=== PATIENT | male | born 1930 | race Caucasian/White ===

== ENCOUNTER → 2018-04-20 | Outpatient (REF) | payer MEDICARE ==
[2018-04-20 17:57] LABS: ALBUMIN 3.6 GM/DL (3.2-5.2); ALBUMIN/GLOBULIN RATIO 1.13 (1.00-1.93); ALKALINE PHOSPHATASE 67 U/L (45-117); ALT/SGPT 16 U/L (12-78); ANION GAP 7 MEQ/L (8-16); AST/SGOT 18 U/L (7-37); BILIRUBIN,TOTAL 0.8 MG/DL (0.2-1.0); BLOOD UREA NITROGEN 27 MG/DL (7-18); CALCIUM LEVEL 8.5 MG/DL (8.8-10.2); CARBON DIOXIDE LEVEL 29 MEQ/L (21-32); CHLORIDE LEVEL 106 MEQ/L (98-107); CREATININE FOR GFR 1.22 MG/DL (0.70-1.30); GLOMERULAR FILTRATION RATE 59.8 (>35); GLUCOSE, FASTING 84 MG/DL (70-100); POTASSIUM SERUM 4.5 MEQ/L (3.5-5.1); SODIUM LEVEL 142 MEQ/L (136-145); TOTAL PROTEIN 6.8 GM/DL (6.4-8.2)
== END ==
LOC: M SFHCCLAY 09:40
DX: I10 Essential (primary) hypertension (principal)
CPT/HCPCS: 84443

== ENCOUNTER → 2019-03-10 | Outpatient (REF) | payer MEDICARE ==
[2019-03-10 16:37] LABS: HEMATOCRIT 43.2 % (42.0-52.0); MEAN CORPUSCULAR HEMOGLOBIN 32.9 pg (27.0-33.0); MEAN CORPUSCULAR HGB CONC 32.4 g/dl (32.0-36.5); MEAN CORPUSCULAR VOLUME 101.4 fl (80.0-96.0); PLATELET COUNT, AUTOMATED 239 10^3/uL (150-450); RED BLOOD COUNT 4.26 10^6/uL (4.30-6.10); WHITE BLOOD COUNT 5.1 10^3/uL (4.0-10.0)
[2019-03-10 16:53] LABS: ALBUMIN 3.5 GM/DL (3.2-5.2); ALT/SGPT 15 U/L (12-78); BILIRUBIN,TOTAL 0.5 MG/DL (0.2-1.0); BLOOD UREA NITROGEN 22 MG/DL (7-18); CARBON DIOXIDE LEVEL 30 MEQ/L (21-32); CHLORIDE LEVEL 109 MEQ/L (98-107); CREATININE FOR GFR 1.13 MG/DL (0.70-1.30); FREE T4 1.07 NG/DL (0.76-1.46); GLOMERULAR FILTRATION RATE > 60.0 (>35); GLUCOSE, FASTING 88 MG/DL (70-100); POTASSIUM SERUM 4.2 MEQ/L (3.5-5.1); SODIUM LEVEL 143 MEQ/L (136-145); TOTAL PROTEIN 6.5 GM/DL (6.4-8.2)
== END ==
LOC: M SFHCCLAY 10:09
PROVIDERS: ATTEND Family Medicine
DX: G30.9 Alzheimer's disease, unspecified (principal); F01.50 Vascular dementia, unspecified severity, without behavioral disturbance, psychotic disturbance, mood disturbance, and anxiety; I10 Essential (primary) hypertension

== ENCOUNTER → 2019-07-26 | Outpatient (CLI) | payer MEDICARE ==
--- NOTE | 2019-07-26 17:45 | REP ---
Chest x-ray: Three views. History: Cough. Comparison chest x-ray: December 20 2013. Findings: Lungs are hyperinflated. Pleural angles are sharp. No infiltrate is seen. The heart is not enlarged. The thoracic aorta is tortuous. Pulmonary vasculature is not increased. Impression: Hyperinflation consistent with COPD. No infiltrate seen. Electronically Signed by Bonifacio Au MD 07/26/2019 07:08 P
== END ==
LOC: M CLY 15:01
PROVIDERS: ATTEND Family Medicine
DX: R05 Cough (principal)
CPT/HCPCS: 71046; G0463

== ENCOUNTER 2019-09-15 20:06 | Inpatient (IN) | payer MEDICARE ==
[~2019-09-15] VITALS: Ht 175.3 cm; Wt 64.1 kg
[2019-09-15] MEDS ORDERED: NS 500 ML IV ONE (21:00)
[2019-09-15] MEDS ORDERED: LORazepam 2 MG/ML VIAL (J2060) IV STA (22:04)
[2019-09-15] MEDS ORDERED: LORazepam 2 MG/ML VIAL (J2060) As Ordered ONE (22:08)
[2019-09-15 22:10] LABS: BASO % 0.6 % (0.0-1.0); EOS % 0.2 % (0.0-3.0); HEMATOCRIT 44.8 % (42.0-52.0); HEMOGLOBIN 14.4 g/dl (13.5-17.5); LYMPH # 0.3 10^3/uL (1.5-5.0); LYMPH % 6.6 % (24.0-44.0); MEAN CORPUSCULAR HEMOGLOBIN 32.3 pg (27.0-33.0); MEAN CORPUSCULAR HGB CONC 32.1 g/dl (32.0-36.5); MEAN CORPUSCULAR VOLUME 100.4 fl (80.0-96.0); MONO # 0.4 10^3/uL (0.0-0.8); MONO % 7.6 % (0.0-5.0); NEUTROPHILS # 4.1 10^3/uL (1.5-8.5); NEUTROPHILS % 84.8 % (36.0-66.0); PLATELET COUNT, AUTOMATED 206 10^3/uL (150-450); RED BLOOD COUNT 4.46 10^6/uL (4.30-6.10); WHITE BLOOD COUNT 4.9 10^3/uL (4.0-10.0)
[2019-09-15 22:53] LABS: ACETAMINOPHEN LEVEL < 2.0 UG/ML (10.0-30.0); ALBUMIN 3.9 GM/DL (3.2-5.2); ALT/SGPT 20 U/L (12-78); BILIRUBIN,DIRECT 0.2 MG/DL (0.0-0.2); BILIRUBIN,TOTAL 0.9 MG/DL (0.2-1.0); BLOOD UREA NITROGEN 37 MG/DL (7-18); CARBON DIOXIDE LEVEL 28 MEQ/L (21-32); CHLORIDE LEVEL 106 MEQ/L (98-107); CK-MB VALUE MASS 2.7 NG/ML (<3.6); CPK CREATINE PHOSPHOKINASE 231 U/L (39-308); ETHYL ALCOHOL (ETHANOL) < 0.003 % (0.000-0.010); GLOMERULAR FILTRATION RATE 43.5 (>35); GLUCOSE, FASTING 116 MG/DL (70-100); MB/CK RELATIVE INDEX 1.17 (< OR =4); POTASSIUM SERUM 4.4 MEQ/L (3.5-5.1); SALICYLATE LEVEL < 1.7 MG/DL (5.0-30.0); SODIUM LEVEL 142 MEQ/L (136-145); TOTAL PROTEIN 7.3 GM/DL (6.4-8.2); TROPONIN I < 0.02 NG/ML (< 0.10)
[2019-09-15 22:56] LABS: AMPHETAMINES LEVEL URINE NEGATIVE (NEGATIVE); BARBITURATES URINE NEGATIVE (NEGATIVE); BENZODIAZEPINES URINE NEGATIVE (NEGATIVE); CANNABINOIDS URINE NEGATIVE (NEGATIVE); COCAINE METABOLITE URINE NEGATIVE (NEGATIVE); METHADONE URINE NEGATIVE (NEGATIVE); OPIATES URINE NEGATIVE (NEGATIVE); PHENCYCLIDINE URINE NEGATIVE (NEGATIVE)
--- NOTE | 2019-09-15 23:44 | REPVR ---
PROCEDURE INFORMATION: Exam: CT Head Without Contrast Exam date and time: 09/15/2019 8:40 PM Age: 89 years old Clinical indication: Altered mental status/memory loss; Confusion or disorientation TECHNIQUE: Imaging protocol: Computed tomography of the head without contrast. Radiation optimization: All CT scans at this facility use at least one of these dose optimization techniques: automated exposure control; mA and/or kV adjustment per patient size (includes targeted exams where dose is matched to clinical indication); or iterative reconstruction. COMPARISON: MRI-Brain without Contrast 12/28/2013 9:49 AM FINDINGS: Brain: There are moderate periventricular and subcortical lucencies consistent with chronic microvascular ischemic changes. The taveras-white differentiation is maintained. No hemorrhage. No edema. Ventricles: Ventricles and sulci are prominent consistent with age appropriate parenchymal volume loss. Bones/joints: Unremarkable. No acute fracture. Sinuses: Visualized sinuses are unremarkable. No fluid levels. Mastoid air cells: Visualized mastoid air cells are well aerated. Soft tissues: Unremarkable. IMPRESSION: No acute intracranial abnormality. Chronic microvascular ischemic changes. Electronically signed by: Micheal Brady On 09/15/2019 23:43:44 PM
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
[2019-09-16] MEDS ORDERED: MOM 30ML SUSPENSION UDC PO PRN
[2019-09-16] MEDS ORDERED: ACETAMINOPHEN TAB 650MG DOSE (2X325MG) PO PRN
[2019-09-16] MEDS ORDERED: PATIENT COMMENTS (00:18)
[2019-09-16] MEDS: NS 1,000 ML IV SCH ×2 (00:44→16:55)
[2019-09-16 02:20] VITALS: BP 139/55
[2019-09-16 06:00] VITALS: BP 140/55
[2019-09-16 06:16] LABS: HEMATOCRIT 40.7 % (42.0-52.0); HEMOGLOBIN 13.5 g/dl (13.5-17.5); MEAN CORPUSCULAR HEMOGLOBIN 32.5 pg (27.0-33.0); MEAN CORPUSCULAR HGB CONC 33.2 g/dl (32.0-36.5); MEAN CORPUSCULAR VOLUME 98.1 fl (80.0-96.0); PLATELET COUNT, AUTOMATED 174 10^3/uL (150-450); RED BLOOD COUNT 4.15 10^6/uL (4.30-6.10)
[2019-09-16 06:39] LABS: CALCIUM LEVEL 8.1 MG/DL (8.8-10.2); CREATININE FOR GFR 1.29 MG/DL (0.70-1.30); GLOMERULAR FILTRATION RATE 55.8 (>35); POTASSIUM SERUM 3.8 MEQ/L (3.5-5.1)
--- NOTE | 2019-09-16 07:56 | ECGEPIP ---
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
[2019-09-16] MEDS: ENOXAPARIN 40 MG/0.4 ML SYRINGE (J1650) SC SCH (08:39)
--- NOTE | 2019-09-16 11:55 | REP ---
REASON: Altered mental status. COMPARISON: Multiple the latest, 07/26/2019. The technique utilized in obtaining the radiograph has magnified the cardiac silhouette and accentuated the interstitial markings. The cardiomediastinal silhouette is unchanged. The lung vyas are unchanged. No acute patchy parenchymal opacities or pleural effusions have developed. There is no significant change in the osseous structures. IMPRESSION: Limited portable examination showing no evidence of acute cardiopulmonary disease. Unreviewed
[2019-09-16] MEDS ORDERED: LORazepam 2 MG/ML VIAL (J2060) As Ordered ONE (13:29)
[2019-09-16] MEDS: LORazepam 2 MG/ML VIAL (J2060) IV PRN ×2 (13:36→21:33)
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
[2019-09-17 06:00] VITALS: BP 161/78
[2019-09-17 07:02] LABS: HEMATOCRIT 41.9 % (42.0-52.0); HEMOGLOBIN 13.7 g/dl (13.5-17.5); MEAN CORPUSCULAR HEMOGLOBIN 31.9 pg (27.0-33.0); MEAN CORPUSCULAR HGB CONC 32.7 g/dl (32.0-36.5); MEAN CORPUSCULAR VOLUME 97.7 fl (80.0-96.0); PLATELET COUNT, AUTOMATED 182 10^3/uL (150-450); RED BLOOD COUNT 4.29 10^6/uL (4.30-6.10); WHITE BLOOD COUNT 6.2 10^3/uL (4.0-10.0)
[2019-09-17] MEDS: ENOXAPARIN 40 MG/0.4 ML SYRINGE (J1650) SC SCH (09:00)
[2019-09-17] MEDS: NS 1,000 ML IV SCH (09:35)
[2019-09-17 10:29] LABS: ALBUMIN 3.1 GM/DL (3.2-5.2); BLOOD UREA NITROGEN 30 MG/DL (7-18); CALCIUM LEVEL 8.4 MG/DL (8.8-10.2); CARBON DIOXIDE LEVEL 26 MEQ/L (21-32); CHLORIDE LEVEL 112 MEQ/L (98-107); GLOMERULAR FILTRATION RATE 55.3 (>35); GLUCOSE, FASTING 88 MG/DL (70-100); PHOSPHORUS LEVEL 2.6 MG/DL (2.5-4.9); POTASSIUM SERUM 3.9 MEQ/L (3.5-5.1); SODIUM LEVEL 143 MEQ/L (136-145)
[2019-09-17] MEDS ORDERED: LORazepam 2 MG/ML VIAL (J2060) As Ordered ONE (12:50)
[2019-09-17] MEDS: LORazepam 2 MG/ML VIAL (J2060) IV PRN ×2 (12:59→20:14)
[2019-09-17 14:00] VITALS: BP 134/59
--- NOTE | 2019-09-17 17:19 | IPNPDOC ---
Subjective Date Seen The patient was seen on 09/17/19. Subjective Chief Complaint/HPI He remains demented with intermittent agitation, but he is overall less agitated today than yesterday. General: Reports: ROS Unobtainable Objective Physical Examination General Exam: Positive: Alert, Mild Distress (the sitter is needed to be right at his bedside, but not having to actively restrain him from climbing out of bed today); Negative: Cooperative Eye Exam: Negative: Sclera icteric ENT Exam: Positive: Mucous membr. moist/pink Psych Exam: Negative: Mental status NL, Memory Intact Assessment /Plan Problems (1) Alzheimer's dementia Status: Chronic Response to Treatment: Uncontrolled Discussed With: Nurse, Patient Problem Text: This is the real problem. The family at home is ill and is no longer able to take care of him. I'm not sure if this is a long-term or short- term proposition. We will need PFS to help sort this out once they return from the weekend. In the meantime, I ordered when necessary lorazepam to help with his agitation. It sounds as if there is some thoughts from the family about going home with hospice care. Hospice would use lorazepam for agitation which is why I selected it for here in the hospital. (2) Acute kidney injury Status: Resolved Response to Treatment: Improving Problem Specific Plan: Repeat Labs Problem Text: His renal function has improved substantially. His creatinine was 1.13 about six months ago. I'm not sure what the improvement is due to, but it may be simply better oral hydration here in the hospital. (3) Dehydration Status: Resolved Response to Treatment: Improving Problem Specific Plan: Monitor Clinically Problem Text: He no longer has a lactic acidosis. It seems that dehydration was an acute phenomenon, probably because he was not able to get what he needed home. Plan/VTE VTE Prophylaxis Ordered?: Yes (Lovenox) VS, I&O, 24H, Fishbone Vital Signs/I&O Vital Signs Date Time Temp Pulse Resp B/P (MAP) Pulse Ox O2 Delivery O2 Flow Rate FiO2 09/17/19 14:00 52 16 134/59 (84) 96 Room Air 09/17/19 06:00 98.3 I&O- Last 24 Hours up to 6 AM 09/17/19 06:00 Intake Total 1500 ml Balance 1500 ml Laboratory Data 24H LABS Laboratory Tests 2 3/15/20 06:44: Nucleated Red Blood Cells % (auto) 0.0, Anion Gap 5L, Glomerular Filtration Rate 55.3, Calcium Level 8.4L, Phosphorus Level 2.6, Albumin 3.1#L CBC/BMP Laboratory Tests 09/17/19 06:44 Microbiology Microbiology 09/16/19 Respiratory Virus Panel (PCR) (DELFIN) - Final, Complete Vamsi Back MD Sep 17, 2019 5:19 pm
[2019-09-17 21:30] VITALS: BP 134/62
[2019-09-18] MEDS: LORazepam 2 MG/ML VIAL (J2060) IV PRN ×3 (00:43→22:41)
[2019-09-18] MEDS: NS 1,000 ML IV SCH ×2 (01:32→19:51)
[2019-09-18 06:23] LABS: HEMATOCRIT 42.6 % (42.0-52.0); HEMOGLOBIN 14.4 g/dl (13.5-17.5); MEAN CORPUSCULAR HEMOGLOBIN 32.7 pg (27.0-33.0); MEAN CORPUSCULAR HGB CONC 33.8 g/dl (32.0-36.5); MEAN CORPUSCULAR VOLUME 96.6 fl (80.0-96.0); PLATELET COUNT, AUTOMATED 195 10^3/uL (150-450); RED BLOOD COUNT 4.41 10^6/uL (4.30-6.10); WHITE BLOOD COUNT 5.6 10^3/uL (4.0-10.0)
[2019-09-18 06:26] VITALS: BP 177/80
[2019-09-18] MEDS: ENOXAPARIN 40 MG/0.4 ML SYRINGE (J1650) SC SCH (09:00)
[2019-09-18 09:41] LABS: FOLATE > 24.0 NG/ML (>5.4); VITAMIN B12 LEVEL 389 PG/ML (247-911)
--- NOTE | 2019-09-18 11:15 | IPNPDOC ---
Subjective Date Seen The patient was seen on 09/18/19. Subjective Chief Complaint/HPI Pt nonverbal, family is requesting Hospice consult, son and DIL reside in the pts home caring for him. General: Reports: ROS Unobtainable Objective Physical Examination General Exam: Positive: Alert, No Acute Distress; Negative: Cooperative, Mild Distress, Moderate Distress Eye Exam: Negative: Sclera icteric Chest Exam: Positive: Clear to auscultation Heart Exam: Positive: Rate Normal, Regular Rhythm Abdomen Exam: Positive: Normal bowel sounds Extremity Exam: Negative: Edema Psych Exam: Negative: Mental status NL, Memory Intact Assessment /Plan Problems (1) Alzheimer's dementia Status: Chronic Response to Treatment: Uncontrolled Discussed With: Nurse, Patient Problem Text: 09/17 Family at bedside this morning, we met away from the room, they are requesting Hopsice consult, this was ordered, nursing aware. 09/16 This is the real problem. The family at home is ill and is no longer able to take care of him. I'm not sure if this is a long-term or short-term proposition. We will need PFS to help sort this out once they return from the weekend. In the meantime, I ordered when necessary lorazepam to help with his agitation. It sounds as if there is some thoughts from the family about going home with hospice care. Hospice would use lorazepam for agitation which is why I selected it for here in the hospital. (2) Acute kidney injury Status: Resolved Response to Treatment: Improving Problem Specific Plan: Repeat Labs Problem Text: His renal function has improved substantially. His creatinine was 1.13 about six months ago. I'm not sure what the improvement is due to, but it may be simply better oral hydration here in the hospital. (3) Dehydration Status: Resolved Response to Treatment: Improving Problem Specific Plan: Monitor Clinically Problem Text: He no longer has a lactic acidosis. It seems that dehydration was an acute phenomenon, probably because he was not able to get what he needed home. Plan/VTE VTE Prophylaxis Ordered?: Yes (Lovenox) VS, I&O, 24H, Fishbone Vital Signs/I&O Vital Signs Date Time Temp Pulse Resp B/P (MAP) Pulse Ox O2 Delivery O2 Flow Rate FiO2 09/18/19 06:26 96.2 48 16 177/80 (112) 100 Room Air I&O- Last 24 Hours up to 6 AM 09/18/19 06:00 Intake Total 720 ml Balance 720 ml Laboratory Data 24H LABS Laboratory Tests 2 09/18/19 05:46: Nucleated Red Blood Cells % (auto) 0.0 CBC/BMP Laboratory Tests 09/18/19 05:46 Microbiology Microbiology 09/16/19 Respiratory Virus Panel (PCR) (DELFIN) - Final, Complete REINALDO CANELA PA-C Sep 18, 2019 11:15
[2019-09-18 22:00] VITALS: BP 186/98
[2019-09-18 23:45] VITALS: BP 180/80
[2019-09-19] MEDS: LORazepam 2 MG/ML VIAL (J2060) IV PRN ×2 (03:08→10:36)
[2019-09-19 06:00] VITALS: BP 182/88
[2019-09-19 06:23] LABS: BLOOD UREA NITROGEN 18 MG/DL (7-18); CALCIUM LEVEL 8.4 MG/DL (8.8-10.2); CARBON DIOXIDE LEVEL 22 MEQ/L (21-32); CHLORIDE LEVEL 113 MEQ/L (98-107); CREATININE FOR GFR 1.01 MG/DL (0.70-1.30); GLOMERULAR FILTRATION RATE > 60.0 (>35); GLUCOSE, FASTING 88 MG/DL (70-100); POTASSIUM SERUM 3.9 MEQ/L (3.5-5.1); SODIUM LEVEL 143 MEQ/L (136-145)
[2019-09-19] MEDS: NS 1,000 ML IV SCH (08:58)
[2019-09-19] MEDS: ENOXAPARIN 40 MG/0.4 ML SYRINGE (J1650) SC SCH (09:00)
[2019-09-19] MEDS ORDERED: risperiDONE 0.25 MG TAB PO SCH (09:00)
[2019-09-19] MEDS ORDERED: LORazepam 2 MG/ML VIAL (J2060) As Ordered ONE (10:31)
--- NOTE | 2019-09-19 12:16 | IPNPDOC ---
Subjective Date Seen The patient was seen on 09/19/19. Subjective Chief Complaint/HPI continues c agitation, attempting OOB, requiring sitter General: Denies: Chills Constitutional: Denies: Chills, Fever ENT: Denies: Head Aches Skin: Denies: Rash Pulmonary: Denies: Dyspnea, Cough Cardiovascular: Denies: Chest Pain Gastrointestinal: Denies: Nausea, Vomiting Objective Physical Examination General Exam: Positive: Alert, Mild Distress (the sitter is needed to be right at his bedside, but not having to actively restrain him from climbing out of bed today); Negative: Cooperative Eye Exam: Negative: Sclera icteric ENT Exam: Positive: Mucous membr. moist/pink Neck Exam: Positive: Supple; Negative: JVD Chest Exam: Positive: Clear to auscultation Heart Exam: Positive: Rate Normal Abdomen Exam: Positive: Normal bowel sounds Extremity Exam: Negative: Edema Psych Exam: Negative: Mental status NL, Memory Intact Assessment /Plan Problems (1) Alzheimer's dementia Status: Chronic Response to Treatment: Uncontrolled Discussed With: Nurse, Patient Problem Text: 09/18 long dw son, Bryan, HCP, and long-term PCP Dr. Lynch-both agree c Hospice LOC. Bryan favoring home at this point 2 ELIZABETH spend down. Contingency plan is Hospice house. Miguel SW-planning for 09/20 dc. 09/18 +olanz 2.5 oral-disintegrating tab (given unable to swallow tabs) to dwight 0.5 q4H prn (2) Acute kidney injury Status: Resolved Response to Treatment: Improving Problem Specific Plan: Repeat Labs Problem Text: back to baseline cr 1.0 (3) Dehydration Status: Resolved Response to Treatment: Improving Problem Specific Plan: Monitor Clinically Problem Text: euvolemic, but minimal po continue NS 60 Plan/VTE VTE Prophylaxis Ordered?: Yes (Lovenox) VS, I&O, 24H, Fishbone Vital Signs/I&O Vital Signs Date Time Temp Pulse Resp B/P (MAP) Pulse Ox O2 Delivery O2 Flow Rate FiO2 09/19/19 06:00 98.0 71 20 182/88 (119) 97 Room Air I&O- Last 24 Hours up to 6 AM 09/19/19 06:00 Intake Total 1490 ml Output Total 0 ml Balance 1490 ml Laboratory Data 24H LABS Laboratory Tests 2 09/19/19 05:33: Anion Gap 8, Glomerular Filtration Rate > 60.0, Calcium Level 8.4L CBC/BMP Laboratory Tests 09/19/19 05:33 Microbiology Microbiology 09/16/19 Respiratory Virus Panel (PCR) (DELFIN) - Final, Complete Zohaib Monsalve M.D. Sep 19, 2019 12:16
[2019-09-19] MEDS ORDERED: PILL CUTTER 1 EACH XX PRN (13:00)
[2019-09-19] MEDS: OLANZapine ORAL DISINTEGRATING TAB 5MG PO SCH ×2 (14:38→20:00)
[2019-09-19 22:00] VITALS: BP 158/82
[2019-09-20] MEDS: NS 1,000 ML IV SCH (00:55)
[2019-09-20 06:00] VITALS: BP 210/100
[2019-09-20] MEDS: LORazepam 2 MG/ML VIAL (J2060) IV PRN ×5 (06:18→23:58)
[2019-09-20 06:35] VITALS: BP 215/110
[2019-09-20 06:47] VITALS: BP 180/104
[2019-09-20 06:57] VITALS: BP 178/90
[2019-09-20 07:07] LABS: ALBUMIN 3.5 GM/DL (3.2-5.2); BLOOD UREA NITROGEN 15 MG/DL (7-18); CARBON DIOXIDE LEVEL 24 MEQ/L (21-32); CHLORIDE LEVEL 109 MEQ/L (98-107); CREATININE FOR GFR 1.09 MG/DL (0.70-1.30); GLOMERULAR FILTRATION RATE > 60.0 (>35); GLUCOSE, FASTING 80 MG/DL (70-100); PHOSPHORUS LEVEL 2.8 MG/DL (2.5-4.9); POTASSIUM SERUM 3.6 MEQ/L (3.5-5.1); SODIUM LEVEL 141 MEQ/L (136-145)
[2019-09-20] MEDS: OLANZapine ORAL DISINTEGRATING TAB 5MG PO SCH ×2 (08:01→20:04)
[2019-09-20] MEDS: ENOXAPARIN 40 MG/0.4 ML SYRINGE (J1650) SC SCH (08:01)
[2019-09-20] MEDS ORDERED: LORazepam 2 MG/ML VIAL (J2060) As Ordered ONE ×2 (11:15→18:36)
--- NOTE | 2019-09-20 11:31 | IPN ---
DATE: 09/20/2019 Da was seen in [address] [place] [address]. I am waiting to meet with his son Bryan. The patient has advanced Alzheimer's dementia with behavioral disturbance and plan is for hospice, preferably home care. The plan is for discharge tomorrow. PHYSICAL EXAMINATION: When I went to examine Da, he was grappling with the nursing staff, who were trying to clean him up after bathrooming in the bed this morning. He is cachectic and muscle wasted and entirely uncooperative. IMPRESSION: 1. End stage dementia. PLAN: I will discuss the plans with Bryan. The patient currently is FULL CODE. We will get a Medical Orders for Life Sustaining Treatment (MOLST) form completed for him to sign and once this is all agreed upon, we can put comfort measures only in. The patient's blood pressure is elevated. He is very agitated. There is no level of blood pressure that is going to affect his prognosis and would advise against treating this. Hopefully, we can discontinue vital signs after I speak with his son.
[2019-09-20] MEDS ORDERED: LORazepam 1 MG TAB PO PRN (14:15)
[2019-09-20] MEDS ORDERED: MORPHINE 2 MG/ML 1ML VIAL (J2270) IV PRN (14:15)
[2019-09-20] MEDS ORDERED: MORPHINE 10MG/0.5ML ORAL CONCENTRATE SOLUTION U/D SL PRN (14:15)
[2019-09-20] MEDS ORDERED: HYOSCYAMINE SULFATE 0.125 MG SUBL TABLET PO PRN (14:15)
--- NOTE | 2019-09-20 14:21 | IPN ---
DATE OF SERVICE: 09/20/2019 I had a long telephone conversation with Bryan Mitchell, Da's son and healthcare proxy. He would like his father discharged home tomorrow with hospice. We have reaffirmed that he wants comfort measures only with DO NOT RESUSCITATE/DO NOT INTUBATE and discharged home under hospice care. Towards that end, I am putting in the hospice discharge medications so that those can be picked up after his discharge. Dr. Monsalve will be rounding tomorrow for group but visiting hours will soon be restricted and I would like to get Da discharged as early as feasible for tomorrow. Felipe has an appointment in the morning but should be available in time for Da to be discharged before 11:00 a.m.
[2019-09-21] MEDS: LORazepam 2 MG/ML VIAL (J2060) IV PRN ×2 (02:49→05:26)
[2019-09-21] MEDS: OLANZapine ORAL DISINTEGRATING TAB 5MG PO SCH (10:27)
--- NOTE | 2019-09-21 12:07 | DSES ---
DATE OF ADMISSION: 09/15/2019 DATE OF DISCHARGE: DISCHARGE DIAGNOSES: 1. Alzheimer dementia, end stage with agitation. 2. Acute kidney injury secondary to dehydration. 3. Chronic kidney disease stage III. 4. Lactic acid secondary to dehydration. 5. Acute delirium secondary to dehydration and baseline dementia. HOSPITAL COURSE: The patient was hydrated with intravenous (IV) fluids during admission, and mental status was back to baseline. Complete blood count (CBC) with differential, complete metabolic panel (CMP), ammonia, B12, folate, and thyroid-stimulating hormone (TSH) were normal. Chest x-ray showed no acute disease. CT of the head showed moderate periventricular and subcortical white matter lucencies consistent with chronic microvascular ischemic change. Respiratory panel was negative. After a long discussion with the patient's healthcare proxy, Bryan, his son, and long-term primary care provider, Dr. Lynch, it was agreed upon to discharge the patient home with Hospice. Hospice was consulted and saw inpatient and plan for discharge home today. Hospice medications of lorazepam, Roxanol, and hyoscyamine were e-scribed to [facility] in [place].
== END 2019-09-21 12:48 | disposition hospice, home (50) | DRG 57 ==
LOC: M ED 20:06 → M ED INP 23:54 → UNDOADMIN 09-16 00:22 → ENRESERVDT 09-16 00:56 → ENRESERVTM 09-16 00:56 → M MSPAV 09-16 02:20
PROVIDERS: ADMIT Internal Medicine; ATTEND Family Medicine
DX: G30.9 Alzheimer's disease, unspecified (principal); F02.81 Dementia in other diseases classified elsewhere, unspecified severity, with behavioral disturbance; E87.2 Acidosis; N17.9 Acute kidney failure, unspecified; I12.9 Hypertensive chronic kidney disease with stage 1 through stage 4 chronic kidney disease, or unspecified chronic kidney disease; N18.3 Chronic kidney disease, stage 3 (moderate); E78.5 Hyperlipidemia, unspecified; E86.0 Dehydration; R41.0 Disorientation, unspecified; Z51.5 Encounter for palliative care; Z66 Do not resuscitate; Z87.891 Personal history of nicotine dependence; Z90.49 Acquired absence of other specified parts of digestive tract; Z88.6 Allergy status to analgesic agent